=== PATIENT | female | born 1950 | race Two or more races ===

== ENCOUNTER 2023-08-02 07:21 | Emergency (ER) | payer OTHER ==
[~2023-08-02] VITALS: Ht 154.9 cm; Wt 63.5 kg
[2023-08-02] MEDS ORDERED: ZESTRIL20 MG PO (07:40)
[2023-08-02] MEDS ORDERED: LYRICA20 MG/1 ML PO (07:41)
[2023-08-02] MEDS ORDERED: EZALLOR SPRINKLE5 MG PO (07:41)
[2023-08-02 09:14] LABS: HEMATOCRIT 41.3 % (36.0-45.00); HEMOGLOBIN 14.1 g/dL (12.0-15.00); MEAN CELL VOLUME 93.9 fL (80.00-100.00); MEAN CORPUSCULAR HGB CONC 34.1 g/dl (32.0-36.0); PLATELET COUNT 184 K/uL (150-450); RED CELL DISTRIBUTION WIDTH 13.1 % (11.5-14.5)
[2023-08-02] MEDS ORDERED: PAXLOVID 300-11 EACH PO (09:57)
[2023-08-02] MEDS ORDERED: TUSNEL LIQUID178 ML PO (09:57)
== END 2023-08-02 10:07 | disposition home or self-care (01) ==
LOC: ER 07:21
PROVIDERS: General Practice
DX: U07.1 COVID-19 (principal); I10 Essential (primary) hypertension
CPT/HCPCS: 36415; 96372; 99284; J1885